=== PATIENT | female | born 1955 | race Hispanic/Latino ===

== ENCOUNTER 2017-01-24 18:29 | Outpatient (CLI) | payer OTHER ==
--- NOTE | 2017-01-25 08:32 | Magnetic Resonance Report ---
MRI OF THE BRAIN WITHOUT CONTRAST: HISTORY: Headache PROCEDURE: Multiplanar, multisequence MR imaging of the brain without IV contrast was performed. FINDINGS: The brain parenchyma signal intensity and its stuart white interface are within normal limits on all sequences. No evidence for acute ischemia, hemorrhage or mass. No chronic infarct or extra-axial fluid collection. The midline structures are central. The basal cisterns are patent. Normal ventricular size. The orbital cavities and sella turcica demonstrate no abnormality. The visualized paranasal sinuses and mastoid air cells are well aerated. IMPRESSION: MRI brain within normal limits.
== END 2017-01-24 18:30 | disposition home or self-care (01) ==
LOC: MRI 18:29
PROVIDERS: ATTEND Psychiatry & Neurology Neurology
DX: G43.709 Chronic migraine without aura, not intractable, without status migrainosus (principal)
CPT/HCPCS: 70551

== ENCOUNTER 2017-04-21 17:44 | Emergency (ER) | payer OTHER ==
[2017-04-21 18:21] LABS: Basophils % (Auto) 0.3 % (0.0-1.8); Hemoglobin 12.7 gm/dl (10.1-14.3); Mean Corpuscular HGB Conc 33 % (30-34); Mean Corpuscular Hemoglobin 31 pg (28-32); Mean Corpuscular Volume 91 fl (79-97); Platelet Count 302 K/mm3 (140-440); Red Blood Count 4.16 M/mm3 (3.65-5.03); Red Cell Distribution Width 13.1 % (13.2-15.2); White Blood Count 9.4 K/mm3 (4.5-11.0)
[2017-04-21 18:40] LABS: Alanine Aminotransferase 22 units/L (7-56); Albumin 4.5 g/dL (3.9-5); Albumin/Globulin Ratio 1.6 %; Alkaline Phosphatase 94 units/L (35-129); Anion Gap 19 mmol/L; Blood Urea Nitrogen 15 mg/dL (7-17); Calcium 9.2 mg/dL (8.4-10.2); Carbon Dioxide 24 mmol/L (22-30); Chloride 100.3 mmol/L (98-107); Glucose 125 mg/dL (65-100); Lipase 17 units/L (13-60); Sodium 138 mmol/L (137-145); Total Protein 7.3 g/dL (6.3-8.2)
[2017-04-21 21:06] LABS: Bilirubin,Urine NEG (Negative); Blood,Urine NEG (Negative); Ketones,Urine 80 mg/dL (Negative); Leukocyte Esterase,Urine NEG (Negative); Mucus,Urine FEW /HPF; Nitrite,Urine NEG (Negative); Protein,Urine <15 mg/dL mg/dL (Negative); Urobilinogen,Urine < 2.0 mg/dL (<2.0)
--- NOTE | 2017-04-21 21:35 | Emergency Department Report ---
ED General Adult HPI - General Chief complaint: Headache Stated complaint: MIGRANE/NAUSEA Time Seen by Provider: 04/21/17 21:29 Source: patient, RN notes reviewed, old records reviewed Mode of arrival: Ambulatory Limitations: No Limitations - History of Present Illness Initial comments: This is a 62-year-old female, the patient was previously unknown to this provider. Patient follows with neurology, Dr. Lyons. Patient reports a past medical history of migraine disease, irritable bowel syndrome, Espino's esophagus. The patient presents to the ER with 2 complaints. Her first complaint is headache. The headache started overnight. The headache is not sudden or thunderclap in nature. It did not which maximal intensity within an hour, it is not the worst headache of her life, she reports a worse headache last year. The headache is right-sided, retro-orbital," he feels like it's on my facial bone." There is no neck pain or neck stiffness, there is no temporal pain, there is no change in visual acuity, there is no pain with chewing and/or swallowing food. Patient had a negative MRI at this facility 01/24/2017. She does report mild nausea and vomiting. There is no neck pain or neck stiffness. Patient also complains of left-sided abdominal pain, and the left lower quadrant and left upper quadrant. It has been present intermittently for 8 years, it is slightly worsened recently. No hematemesis or bright red blood per rectum, the patient is defecating normally, and she denies irritative/ obstructive urinary symptoms. -: Gradual Location: head, abdomen Quality: aching Consistency: intermittent Improves with: none Worsens with: none Associated Symptoms: headaches, nausea/vomiting - Related Data Previous Rx's Medication Instructions Recorded Last Taken Type Dicyclomine [Bentyl] 10 mg PO QID PRN #20 capsule 04/21/17 Unknown Rx Ibuprofen [Motrin] 600 mg PO Q8H PRN #30 tablet 04/21/17 Unknown Rx Metoclopramide [Reglan] 10 mg PO QID PRN #20 tab 04/21/17 Unknown Rx Allergies Allergy/AdvReac Type Severity Reaction Status Date / Time codeine Allergy Headache Unverified 01/24/17 18:30 ED Review of Systems ROS: Stated complaint: MIGRANE/NAUSEA Other details as noted in HPI Constitutional: malaise. denies: fever Eyes: denies: eye discharge, vision change ENT: denies: epistaxis Respiratory: denies: cough Cardiovascular: denies: chest pain Gastrointestinal: abdominal pain, nausea, vomiting Genitourinary: denies: urgency, dysuria Musculoskeletal: denies: back pain Skin: denies: lesions Neurological: headache Psychiatric: anxiety ED Past Medical Hx - Past Medical History Hx Headaches / Migraines: Yes Additional medical history: IBS, barretts esophagus - Surgical History Additional Surgical History: Hyst, bladder tack - Social History Smoking Status: Never Smoker Substance Use Type: Alcohol - Medications Home Medications: Home Medications Medication Instructions Recorded Confirmed Last Taken Type Dicyclomine [Bentyl] 10 mg PO QID PRN #20 capsule 04/21/17 Unknown Rx Ibuprofen [Motrin] 600 mg PO Q8H PRN #30 tablet 04/21/17 Unknown Rx Metoclopramide [Reglan] 10 mg PO QID PRN #20 tab 04/21/17 Unknown Rx ED Physical Exam - General Limitations: No Limitations General appearance: alert, in no apparent distress - Head Head exam: Present: atraumatic, normocephalic - Eye Eye exam: Present: normal appearance, PERRL, EOMI, other (visual acuity intact to finger counting, color perception, reading at a close distance). Absent: nystagmus - ENT ENT exam: Present: normal exam, normal orophraynx, mucous membranes moist, normal external ear exam - Neck Neck exam: Present: normal inspection, full ROM. Absent: tenderness, meningismus - Respiratory Respiratory exam: Present: normal lung sounds bilaterally. Absent: respiratory distress, wheezes, rales, rhonchi, stridor, chest wall tenderness, accessory muscle use, decreased breath sounds, prolonged expiratory - Cardiovascular Cardiovascular Exam: Present: regular rate, normal rhythm, normal heart sounds. Absent: bradycardia, tachycardia, irregular rhythm, systolic murmur, diastolic murmur, rubs, gallop - GI/Abdominal GI/Abdominal exam: Present: soft, normal bowel sounds. Absent: distended, tenderness, guarding, rebound, rigid, pulsatile mass - Extremities Exam Extremities exam: Present: normal inspection, full ROM, normal capillary refill. Absent: tenderness, pedal edema, joint swelling, calf tenderness - Back Exam Back exam: Present: normal inspection, full ROM. Absent: tenderness, CVA tenderness (R), CVA tenderness (L), muscle spasm, paraspinal tenderness, vertebral tenderness - Neurological Exam Neurological exam: Present: alert (there is no temporal tenderness. There is no jaw claudication.), oriented X3, normal gait, other (Extraocular movements intact. Tongue midline. No facial droop. Facial sensation intact to light touch in the V1, V2, V3 distribution bilaterally. 5 and 5 strength in 4 extremities.. Sensation is intact to light touch in 4 extremities.). Absent: motor sensory deficit - Psychiatric Psychiatric exam: Present: normal affect, normal mood - Skin Skin exam: Present: warm, dry, intact, normal color. Absent: rash ED Course Vital Signs 04/21/17 04/21/17 04/21/17 17:57 21:50 21:55 Temperature 98.3 F 98.2 F Pulse Rate 78 86 Respiratory 16 16 Rate Blood Pressure 121/68 Blood Pressure 135/77 [Right] O2 Sat by Pulse 98 98 100 Oximetry 04/21/17 22:40 Temperature 98.0 F Pulse Rate 89 Respiratory 16 Rate Blood Pressure Blood Pressure 108/58 [Right] O2 Sat by Pulse 98 Oximetry - Reevaluation(s) Reevaluation #1: 04/22/17 01:56 Patient reports having had a colonoscopy in 2013, thinks that it was "negative. " ED Medical Decision Making - Lab Data Result diagrams: 04/21/17 18:10 04/21/17 18:10 Vital Signs 04/21/17 04/21/17 04/21/17 17:57 21:50 21:55 Temperature 98.3 F 98.2 F Pulse Rate 78 86 Respiratory 16 16 Rate Blood Pressure 121/68 Blood Pressure 135/77 [Right] O2 Sat by Pulse 98 98 100 Oximetry Lab Results 04/21/17 04/21/17 04/21/17 Range/Units 18:10 18:10 Unknown WBC 9.4 (4.5-11.0) K/mm3 RBC 4.16 (3.65-5.03) M/mm3 Hgb 12.7 (10.1-14.3) gm/dl Hct 38.0 (30.3-42.9) % MCV 91 (79-97) fl MCH 31 (28-32) pg MCHC 33 (30-34) % RDW 13.1 L (13.2-15.2) % Plt Count 302 (140-440) K/mm3 Lymph % (Auto) 8.6 L (13.4-35.0) % Lamar % (Auto) 2.0 (0.0-7.3) % Eos % (Auto) 0.0 (0.0-4.3) % Baso % (Auto) 0.3 (0.0-1.8) % Lymph # 0.8 L (1.2-5.4) K/mm3 Lamar # 0.2 (0.0-0.8) K/mm3 Eos # 0.0 (0.0-0.4) K/mm3 Baso # 0.0 (0.0-0.1) K/mm3 Seg Neutrophils % 89.1 H (40.0-70.0) % Seg Neutrophils # 8.4 H (1.8-7.7) K/mm3 Sodium 138 (137-145) mmol/L Potassium 5.0 (3.6-5.0) mmol/L Chloride 100.3 (98-107) mmol/L Carbon Dioxide 24 (22-30) mmol/L Anion Gap 19 mmol/L BUN 15 (7-17) mg/dL Creatinine 0.5 L (0.7-1.2) mg/dL Estimated GFR > 60 ml/min BUN/Creatinine Ratio 30.00 % Glucose 125 H (65-100) mg/dL Calcium 9.2 (8.4-10.2) mg/dL Total Bilirubin 0.40 (0.1-1.2) mg/dL AST 21 (5-40) units/L ALT 22 (7-56) units/L Alkaline Phosphatase 94 (35-129) units/L Total Protein 7.3 (6.3-8.2) g/dL Albumin 4.5 (3.9-5) g/dL Albumin/Globulin Ratio 1.6 % Lipase 17 (13-60) units/L Urine Color Yellow (Yellow) Urine Turbidity Clear (Clear) Urine pH 6.0 (5.0-7.0) Ur Specific Benedict 1.019 (1.003-1.030) Urine Protein <15 mg/dl (Negative) mg/dL Urine Glucose (UA) Neg (Negative) mg/dL Urine Ketones 80 (Negative) mg/dL Urine Blood Neg (Negative) Urine Nitrite Neg (Negative) Urine Bilirubin Neg (Negative) Urine Urobilinogen < 2.0 (<2.0) mg/dL Ur Leukocyte Esterase Neg (Negative) Urine WBC (Auto) 1.0 (0.0-6.0) /HPF Urine RBC (Auto) 3.0 (0.0-6.0) /HPF U Epithel Cells (Auto) < 1.0 (0-13.0) /HPF Urine Mucus Few /HPF - Radiology Data Radiology results: report reviewed, image reviewed Differential diagnosis: Migraine headache, cluster headache, tension headache, trigeminal neuralgia, colitis, diverticulitis, constipation, malignancy Assessment and plan: 61-year-old female with 2 complaints, headache and abdominal pain. Patient has a GCS of 15, with an NIH score of 0, her history and physical did not support the diagnosis of ischemic or hemorrhagic stroke, subarachnoid hemorrhage, or temporal arteritis. Had a negative MRI at this facility a few months ago. Patient treated symptomatically with multiple medications, including intranasal lidocaine. This all made her feel much improved. Her abdomen is soft and benign, with no rebound, guarding or peritoneal signs, and she is able to tolerate liquid feeds. Her urinalysis does not support the diagnosis of urinary tract infection, and neither does her history and/or physical. A noncontrast CT scan demonstrated no immediate disease which will require surgical intervention or antibiotic therapy, the wall of the distal colon was noted to be slightly thickened, however she does not have history to support the diagnosis of colitis as there is no diarrhea or abdominal tenderness. Patient will be discharged with nonnarcotic pain medication for headache and abdominal pain, as well as nausea medication, and she is instructed to follow up with outpatient gastroenterology for her nonspecific abdominal findings, and her neurologist. Critical care attestation.: If time is entered above; I have spent that time in minutes in the direct care of this critically ill patient, excluding procedure time. ED Disposition Clinical Impression: Headache, Abdominal pain Disposition: DC-01 TO HOME OR SELFCARE Is pt being admited?: No Does the pt Need Aspirin: No Condition: Stable Instructions: Cluster Headache (ED) Additional Instructions: Take the pain medication, nausea medication as directed. Reglan medication may be taken every 6-8 hours as needed for headache and/or nausea. Follow-up with your private neurologist within the next 4-6 weeks. Follow up with a senior piping designer within the next 4-[address] scan demonstrated nonspecific thickening of the distal large intestine, this may be an incidental finding, however, it is very important to follow up with an outpatient senior piping designer for evaluation for possible colonoscopy. Not following up as recommended may result in undiagnosed tumor/cancer/malignancy. Please return to the ER right away with new pain, worsened pain, migration of pain, fevers, chills, lethargy, irritability, projectile vomiting, change in mental status, inability to tolerate liquid feeds. Dr. Antonio is a local gastroenterology specialist. Prescriptions: Dicyclomine [Bentyl] 10 mg PO QID PRN #20 capsule PRN Reason: Pain Ibuprofen [Motrin] 600 mg PO Q8H PRN #30 tablet PRN Reason: Pain Metoclopramide [Reglan] 10 mg PO QID PRN #20 tab PRN Reason: Nausea Referrals: PRIMARY CARE, [Primary Care Provider] - 3-5 Days SUDHA LYONS MD [Staff Physician] - 3-5 Days JOSHUA ANTONIO MD [Staff Physician] - 3-5 Days
[2017-04-21] MEDS ORDERED: XYLOCAINE TOPICAL 4% TP ONE (21:41)
[2017-04-21] MEDS ORDERED: MAGNESIUM SULFATE 2GM/50ML 2 GM/50 ML BAG IV ONE (21:41)
[2017-04-21] MEDS ORDERED: REGLAN IV ONE (21:41)
[2017-04-21] MEDS ORDERED: BENADRYL IV ONE (21:41)
[2017-04-21] MEDS ORDERED: PEPCID IV ONE (21:42)
[2017-04-21] MEDS ORDERED: CARAFATE PO ONE (21:42)
[2017-04-21] MEDS ORDERED: TORADOL IV ONE (21:43)
--- NOTE | 2017-04-21 22:41 | Cat Scan Report ---
FINAL REPORT EXAM: CT ABDOMEN PELVIS WO CON HISTORY: llq abd pain TECHNIQUE: Serial axial images through the abdomen and pelvis with coronal and sagittal reconstruction. PRIORS: None. FINDINGS: There is mild atelectasis in the lung bases. No pleural effusion is seen. The liver, gallbladder, pancreas, spleen and adrenal glands appear within normal limits. Kidneys appear normal. No renal calculi are identified. Aorta is normal in caliber. Bladder appears normal. Uterus is absent. No free fluid. Appendix appears normal. Colon is decompressed. The wall of the distal colon appears slightly thickened. No gross bowel abnormality is identified. No acute osseous abnormality is identified. Hemangioma is noted in the L1 vertebral body. IMPRESSION: 1. No free fluid or inflammatory changes are seen in the abdomen or pelvis. 2. No renal calculi are identified. No stones are seen along the course of the ureters. There is not evidence of hydronephrosis or other obstructive uropathy. 3. The wall of the distal colon appears slightly thickened. This is likely exaggerated by nondistention. This could be related to colitis in the proper clinical setting.
[2017-04-21 23:38] VITALS: BP 108/58
== END 2017-04-21 23:32 | disposition home or self-care (01) ==
LOC: ED 17:44
DX: R10.9 Unspecified abdominal pain (principal); R51 Headache
CPT/HCPCS: 36415; 74176; 80053; 81001; 83690; 85025; 96365; 96375; 99284; J1200; J1885; J2765; J2930; J3475